=== PATIENT | female | born 1975 | race Caucasian/White ===

== ENCOUNTER → 2016-07-21 | Outpatient (CLI) | payer BC ==
[~2016-07-21] MED LIST: ACET-1311 PO; BCPILLS PO; FMV500 PO; IBUP-1050 PO; LRT5 PO; PRENTAB26 PO
--- NOTE | 2016-07-21 12:44 | MAMMOGRAPHY REPORT ---
BILATERAL DIGITAL DIAGNOSTIC MAMMOGRAM TOMOSYNTHESIS WITH CAD AND TARGETED BILATERAL ULTRASOUND: 07/03 CLINICAL HISTORY: Six-month follow-up of bilateral breast masses seen on ultrasound. Also here for follow-up of bilateral calcifications. History of [employer] descent. TECHNIQUE: Breast tomosynthesis in addition to standard 2D mammography was performed. Current study was also evaluated with a Computer Aided Detection (CAD) system. Bilateral CC and MLO 2-D and karoline synthesis images as well as bilateral spot magnification CC and ML views were obtained. COMPARISON: Comparison is made to exams dated: 01/18/2016 ultrasound, 07/20/2015 mammogram, 07/20/2015 ultrasound, 01/13/2015 mammogram, 01/13/2015 ultrasound, and 07/09/2014 mammogram - [facility]. BREAST COMPOSITION: The tissue of both breasts is heterogeneously dense, which may obscure small ma sses. FINDINGS: Spot magnification views of bilateral breasts again demonstrate scattered punctate benign-appearing calcifications, which are stable on spot magnification views dating back to July 2014. Given the benign distribution and morphology and given the long-term stability, the calcifications are benign . The remainder of both breasts are stable compared to prior exams mammographically, without suspic ious masses, calcifications, or areas of architectural distortion noted. Targeted ultrasound was performed of the areas of the previously seen masses. In the right breast a t 6:00, 1 cm from the nipple, again noted is a hypoechoic circumscribed mass, which is decreased in size compared to the July 2015 exam, currently measuring 5 x 3 x 3 mm, previously measuring 8 x 5 x 6 mm. Given the interval decrease in size, the mass is benign and consistent with a cyst. In th e left breast at 8:00 periareolar region, again noted are 2 adjacent circumscribed hypoechoic masses , the largest measuring 2 x 2 x 3 mm. In conglomerate, the area measures 6 x 2 mm. These do not ap pear changed in size and appearance dating back to the July 2015 exam, and are probably benign an d likely represent cysts. In the left breast at 11:00, 1 cm from the nipple, again noted is a round hypoechoic circumscribed mass which measures 2 x 1 x 2 mm, previously measuring 2 x 2 x 2 mm on the December 2015 exam, not significantly changed in size and appearance. The mass is probably benign and likely represents a cyst. IMPRESSION: ACR-BI-RADS CATEGORY 3: PROBABLY BENIGN, TARGETED ULTRASOUND ACR-BI-RADS CATEGORY 3: DC OBABLY BENIGN 1. No mammographic evidence of malignancy in either breast. Recommend screening bilateral tomosynt hesis mammograms in one year. 2. Small hypoechoic circumscribed masses in the left breast at 8:00 and 11:00 are stable compared t o prior exams, and are probably benign and likely represent cysts. The mass in the right 6:00 breas t is decreased in size and is therefore benign and most compatible with a cyst. Recommend another s hort interval follow-up ultrasound in 6 months to reevaluate the masses. At that time, screening wh ole breast ultrasound could be performed, given the history of dense breast parenchyma (30 minute ti me slot). The patient has been verbally notified of the results. Approximately 10% of breast cancers are not detected with mammography. A negative mammographic repor t should not delay biopsy if a clinically suggestive mass is present. Pari Vines M.D. ah/:07/21/2016 11:16:12 Rolled Gold Plater: Desire Love, [facility] letter sent: Follow Up Recommended 3 BI-RADS Code: ACR-BI-RADS Category 3: Probably Benign Ultrasound BI-RADS: ACR-BI-RADS Category 3: P robably Benign
== END | disposition home or self-care (01) ==
LOC: C.MAMM 08:29
PROVIDERS: ATTEND Obstetrics & Gynecology
DX: N63 Unspecified lump in breast (principal)

== ENCOUNTER → 2016-09-22 | Outpatient (CLI) | payer BC | END | disposition home or self-care (01) | LOC: C.PAPS 11:51 | PROVIDERS: ATTEND Physician Assistant | DX: Z01.419 Encounter for gynecological examination (general) (routine) without abnormal findings (principal) ==

== ENCOUNTER → 2017-01-19 | Outpatient (CLI) | payer BC ==
--- NOTE | 2017-01-22 08:00 | MAMMOGRAPHY REPORT ---
ULTRASOUND OF BOTH BREASTS: 01/19/2017 CLINICAL HISTORY: Follow-up of sonographic findings in the left 8:00, 11:00 and right 6:00 breast. Holly diamond is of [place] descent and has dense breasts, therefore complete breast ultraso und for additional screening will also be performed. COMPARISON: Comparison is made to exams dated: 07/21/2016 ultrasound, 07/21/2016 mammogram, 01/18/2016 ultrasound, 07/20/2015 mammogram, 07/20/2015 ultrasound, and 01/13/2015 mammogram - [facility]. FINDINGS: Real-time high-resolution ultrasound was performed throughout each breast including both a xillae. The breast parenchymal echotexture is heterogeneousdense. There is no suspicious right or left axillary lymphadenopathy. There are 2 small adjacent hypoechoic masses in the 8:00 periareolar left breast. The smaller more anechoic cystic appearing mass measures 2.1 x 1.7 mm, and the slightly larger hypoechoic solid versus cystic mass measures 2.1 x 2.3 x 2.4 mm. This has not significantly changed in appearance comparing to the ultrasound performed 07/21/2016, at which time it measured 2.2 x 2.4 x 2.5 mm, or the ultrasound performed 01/18/2016 at which time it measured 2 x 3 x 2 mm. Anot her 12 month follow-up targeted ultrasound is recommended to ensure longer stability. In the 11:00 p eriareolar left breast, there is an oval parallel circumscribed anechoic cyst measuring 3.0 x 1.5 mm. No other discrete solid or cystic mass is seen throughout the left breast including the retroareola r breast. In the right 5:30 to 6:00 axis, 1 cm from the nipple, there is a hypoechoic horizontally oriented cir cumscribed mass measuring 4.5 x 1.8 x 3.6 mm. This could represent a collapsing cyst. In the 6:30 a xis, 1 cm from the nipple, there is a lobulated parallel hypoechoic solid versus cystic mass near the pectoralis muscle. It measures 4.4 x 2.9 x 4.6 mm. This has not significantly changed comparing to the prior ultrasound at which time it measured 4.6 x 2.7 x 3.2 mm. As this hypoechoic lesion was no t definitely seen on any prior ultrasounds, another six-month follow-up targeted ultrasound is recomm ended to ensure longer stability. Annual bilateral screening mammography will also be due at that ti me. In the right 7:00 breast, 4 cm from the nipple, there is another anechoic circumscribed cystic-a ppearing mass measuring 2.3 x 2.2 x 4.8 mm. No other suspicious solid or cystic mass is seen in the right breast including the retroareolar breast. IMPRESSION: ACR-BI-RADS CATEGORY 3: PROBABLY BENIGN - FOLLOW-UP RECOMMENDED 1. There is a stable to slightly smaller hypoechoic solid versus cystic mass in the 8:00 left breast , that has been stable for one year based on prior ultrasounds. Another 12 month follow-up targeted ultrasound is recommend to ensure at least 2 years of stability to confirm benignity. 2. There is a stable hypoechoic solid versus cystic mass in the 6:00 to 6:30 right breast that has b een stable on prior ultrasounds for 6 months. Another six-month follow-up targeted ultrasound is rec ommend to ensure longer stability. Annual bilateral screening mammography is also due at that time. These results and recommendations were discussed with the patient at the time of the exam. She tenta tively scheduled the six-month follow-up mammograms and targeted ultrasound as well as a 12 month fol low-up complete breast ultrasound prior to leaving our department. Celena Craig M.D. ay/:01/19/2017 15:55:41 Time Study Statistician: Desire MARTINEZ)(Sara), [facility] letter sent: Follow Up Recommended 3 BI-RADS Code: ACR-BI-RADS Category 3: Probably Benign
== END | disposition home or self-care (01) ==
LOC: C.MAMM 08:19
PROVIDERS: ATTEND Obstetrics & Gynecology
DX: N60.01 Solitary cyst of right breast (principal); N60.02 Solitary cyst of left breast

== ENCOUNTER → 2017-07-23 | Outpatient (CLI) | payer BC ==
--- NOTE | 2017-07-24 14:38 | MAMMOGRAPHY REPORT ---
BILATERAL DIGITAL DIAGNOSTIC MAMMOGRAM TOMOSYNTHESIS WITH CAD AND TARGETED BILATERAL ULTRASOUND: 07/23 CLINICAL HISTORY: 42-year-old woman with a history of dense breasts and Ashkenazi [place] descent. No family history of breast cancer. Reassess benign-appearing hypoechoic solid versus cystic masses in both breasts, identified on prior ultrasounds. TECHNIQUE: Bilateral breast tomosynthesis in addition to standard 2D mammography was performed. Curre nt study was also evaluated with a Computer Aided Detection (CAD) system. COMPARISON: Comparison is made to exams dated: 01/19/2017 ultrasound, 07/21/2016 ultrasound, 07/21/2016 mammogram, 01/18/2016 ultrasound, 07/20/2015 mammogram, and 07/20/2015 ultrasound - [facility]. BREAST COMPOSITION: The tissue of both breasts is extremely dense, which lowers the sensitivity of m ammography. FINDINGS: Diffuse bilateral punctate microcalcifications, most numerous in the middle one third of ea ch breast are stable comparing to prior mammograms dating back to at least one 02/18/2015 and with 2 years of stability are considered benign. No new suspicious grouping or cluster of microcalcificatio ns identified bilaterally. No obvious new mass, architectural distortion or developing asymmetry. Targeted ultrasound was performed in the 8:00 periareolar left breast and 6:00 right breast to reeval uate the benign-appearing subcentimeter hypoechoic masses identified on prior ultrasounds. In the 8: 00 periareolar left breast, 2 adjacent small round to oval masses are again seen. The first is more hypoechoic to anechoic, measuring 2.3 x 3.0 mm, and the second is hypoechoic to isoechoic, measuring 2.2 x 2.2 x 2.3 mm. When comparing to prior ultrasounds, the size and appearance has not significant ly changed dating back to at least 07/21/2016, at which time the isoechoic to hypoechoic nodular mass measured 2.2 x 2.4 mm. Another 12 month follow-up targeted ultrasound is recommended to ensure long er stability. In the right breast 6:00 axis, 1 cm from the nipple, there is a round to oval circumscribed hypoechoi c solid versus cystic mass ensure a 2.4 x 2.5 x 3.6 mm. This appears slightly different from the iris or ultrasound dated 01/19/2017, at which time the lesion was more oval in appearance. However, previ ously observed hypoechoic circumscribed oval mass in the 6:30 right breast, which could represent the same lesion was previously larger in size, measuring 4.4 x 2.9 x 4.6 mm. The interval decrease in s ize suggest benignity, but as I am unsure if this truly represents the same lesion, a 12 month follow -up targeted ultrasound is recommended to ensure longer stability. No lesion is currently seen in th e 7:00 axes of the right breast on targeted ultrasound. IMPRESSION: ACR-BI-RADS CATEGORY 3: PROBABLY BENIGN, TARGETED ULTRASOUND ACR-BI-RADS CATEGORY 3: PRO BABLY BENIGN 1. Stable bilateral mammograms, including diffuse punctate microcalcifications. No mammographic alonzo dence of malignancy. 2. Stable sonographic appearance of 2 small 2-3 mm hypoechoic and isoechoic masses in the 8:00 peria reolar left breast, and possible decreased in size of a hypoechoic circumscribed mass in the 6:00 to 6:30 right breast on ultrasound. Another 12 month follow-up bilateral targeted ultrasound is recomme nded to ensure at least 2 years of stability to confirm benignity. Bilateral screening tomosynthesis mammography will also be due at that time. These results and recommendations were discussed with the patient at the time of the exam. If the pa tient's lifetime risk for developing breast cancer is at least 20%, she would qualify for screening b reast MRI. Otherwise can weigh the risks and benefits of whole breast screening ultrasound. Approximately 10% of breast cancers are not detected with mammography. A negative mammographic report should not delay biopsy if a clinically suggestive mass is present. Celena Craig M.D. ay/:07/23/2017 17:40:14 Spray Technician: Desire Love, [facility] letter sent: Follow Up Recommended 3 BI-RADS Code: ACR-BI-RADS Category 3: Probably Benign Ultrasound BI-RADS: ACR-BI-RADS Category 3: Pr obably Benign
== END | disposition home or self-care (01) ==
LOC: C.MAMM 09:12
PROVIDERS: ATTEND Obstetrics & Gynecology
DX: R92.0 Mammographic microcalcification found on diagnostic imaging of breast (principal); N63.24 Unspecified lump in the left breast, lower inner quadrant; N63.41 Unspecified lump in right breast, subareolar